=== PATIENT | male | born 1985 | race African-American/Black ===

== ENCOUNTER 2016-03-20 02:54 | Emergency (ER) | payer BC, OTHER ==
[~2016-03-20] VITALS: Ht 180.3 cm; Wt 72.6 kg
[2016-03-20] MEDS ORDERED: APAP500 PO (03:09)
[2016-03-20 03:32] LABS: HEMATOCRIT 47.2 % (42.0-52.0); HEMOGLOBIN 15.5 gm/dL (14.0-18.0); MCH 31.5 pg (26.0-34.0); MCHC 32.7 % (28.0-37.0); MCV 96.4 fL (80.0-100.0); PLATELET COUNT 169 thou/uL (150-400); RDW 12.1 % (10.5-14.5); WBC 3.8 thou/uL (4.0-11.0)
[2016-03-20 03:33] LABS: CALCIUM 8.1 mg/dL (8.5-10.1); CREATININE 1.1 mg/dL (0.6-1.3); MANUAL DIFF YES; POTASSIUM 3.8 mmol/L (3.5-5.1)
[2016-03-20 03:37] LABS: ALBUMIN 3.5 g/dL (3.4-5.0); DIRECT BILIRUBIN 0.2 mg/dL (<0.1-0.3); TOTAL BILIRUBIN 0.4 mg/dL (<0.1-1.0); TOTAL PROTEIN 6.4 g/dL (6.4-8.2)
[2016-03-20 04:00] LABS: URINE BILIRUBIN NEGATIVE (Negative); URINE BLOOD NEGATIVE (Negative); URINE COLOR YELLOW; URINE GLUCOSE-RANDOM* NEGATIVE (Negative); URINE KETONES NEGATIVE (Negative); URINE LEUKOCYTES-REFLEX NEGATIVE (Negative); URINE PROTEIN (DIPSTICK) NEGATIVE (Negative); URINE SPECIFIC GRAVITY <= 1.005 (1.003-1.035); URINE UROBILINOGEN 0.2 E.U./dl (0.2-1.0)
[2016-03-20 04:03] LABS: ABSOLUTE NEUTROPHILS 1.7 thou/uL (1.4-8.2); ATYPICAL LYMPHS 4 %; TOTAL CELL COUNT 100
[2016-03-20 04:32] VITALS: BP 114/73
[2016-03-20] MEDS ORDERED: ZOFRAN ODT4 MG PO (04:32)
[2016-03-20] MEDS ORDERED: NORCO 5-325 TA1 EACH PO (04:32)
[2016-04-18] MEDS ORDERED: PANTOPRAZOLE SO40 M1 PO (03:59)
[2016-04-18] MEDS ORDERED: NAPROSYN500 MG PO (06:00)
[2016-04-18] MEDS ORDERED: TESSALON PERLE100 MG PO (06:00)
== END 2016-03-20 04:46 | disposition home or self-care (01) ==
LOC: ER 02:54
PROVIDERS: Emergency Medicine
DX: K82.8 Other specified diseases of gallbladder (principal); Z88.1 Allergy status to other antibiotic agents; Z88.2 Allergy status to sulfonamides

== ENCOUNTER 2016-06-10 15:18 | Emergency (ER) | payer BC, OTHER ==
[~2016-06-10] VITALS: Ht 182.9 cm; Wt 74.8 kg
[~2016-06-10 15:18] MED LIST: APAP500 PO; NAPROSYN500 MG PO; NORCO 5-325 TA1 EACH PO; PANTOPRAZOLE SO40 M1 PO; TESSALON PERLE100 MG PO; ZOFRAN ODT4 MG PO
[2016-06-10 16:21] LABS: URINE BILIRUBIN NEGATIVE (Negative); URINE BLOOD NEGATIVE (Negative); URINE COLOR YELLOW; URINE GLUCOSE-RANDOM* NEGATIVE (Negative); URINE KETONES TRACE (Negative); URINE LEUKOCYTES-REFLEX NEGATIVE (Negative); URINE PROTEIN (DIPSTICK) NEGATIVE (Negative); URINE UROBILINOGEN 0.2 E.U./dl (0.2-1.0)
[2016-06-10] MEDS ORDERED: NAPROSYN500 MG PO (17:21)
[2016-06-10] MEDS ORDERED: TRAMADOL 50 MG50 MG PO (17:21)
[2016-06-10 17:40] VITALS: BP 120/76
== END 2016-06-10 17:41 | disposition home or self-care (01) ==
LOC: ER 15:18
PROVIDERS: Emergency Medicine
DX: I86.1 Scrotal varices (principal); K21.9 Gastro-esophageal reflux disease without esophagitis; Z88.1 Allergy status to other antibiotic agents; Z88.2 Allergy status to sulfonamides

== ENCOUNTER 2016-06-27 13:53 | Emergency (ER) | payer BC, OTHER ==
[~2016-06-27] VITALS: Ht 182.9 cm; Wt 72.6 kg
[~2016-06-27 13:53] MED LIST changes: +TRAMADOL 50 MG50 MG PO
[2016-06-27 14:36] LABS: ABSOLUTE NEUTROPHILS 4.5 thou/uL (1.4-8.2); BASOPHILS 0.3 % (0.0-2.0); EOSINOPHILS 0.3 % (0.0-3.0); HEMATOCRIT 46.1 % (42.0-52.0); HEMOGLOBIN 15.8 gm/dL (14.0-18.0); LYMPHOCYTES 28.1 % (24.0-44.0); MCH 32.3 pg (26.0-34.0); MCHC 34.3 g/dL (28.0-37.0); MCV 94.1 fL (80.0-100.0); MONOCYTES 4.5 % (1.0-8.0); PLATELET COUNT 218 thou/uL (150-400); POLYS 66.8 % (36.0-66.0); RDW 12.6 % (10.5-14.5); WBC 6.7 thou/uL (4.0-11.0)
[2016-06-27 14:40] LABS: CALCIUM 8.7 mg/dL (8.5-10.1); CREATININE 1.2 mg/dL (0.7-1.3); POTASSIUM 3.8 mmol/L (3.5-5.1)
[2016-06-27 14:44] LABS: MANUAL DIFF NO
[2016-06-27 16:30] VITALS: BP 127/79
== END 2016-06-27 16:30 | disposition home or self-care (01) ==
LOC: ER 13:53
PROVIDERS: Emergency Medicine
DX: R42 Dizziness and giddiness (principal); H53.8 Other visual disturbances; R43.1 Parosmia; K21.9 Gastro-esophageal reflux disease without esophagitis; Z98.890 Other specified postprocedural states; Z88.1 Allergy status to other antibiotic agents; Z88.2 Allergy status to sulfonamides

== ENCOUNTER 2016-08-10 17:50 | Emergency (ER) | payer BC, OTHER ==
[~2016-08-10] VITALS: Ht 185.4 cm; Wt 83.9 kg
[2016-08-10 18:11] LABS: URINE BILIRUBIN NEGATIVE (Negative); URINE BLOOD NEGATIVE (Negative); URINE COLOR YELLOW; URINE GLUCOSE-RANDOM* NEGATIVE (Negative); URINE KETONES TRACE (Negative); URINE NITRITE NEGATIVE (Negative); URINE PROTEIN (DIPSTICK) NEGATIVE (Negative); URINE SPECIFIC GRAVITY >= 1.030 (1.003-1.035); URINE UROBILINOGEN 0.2 E.U./dl (0.2-1.0)
[2016-08-10 20:16] LABS: CALCIUM 8.9 mg/dL (8.5-10.1); CREATININE 0.9 mg/dL (0.7-1.3); POTASSIUM 3.3 mmol/L (3.5-5.1)
[2016-08-10] MEDS ORDERED: FLAGYL500 MG PO (21:10)
[2016-08-10 21:17] VITALS: BP 138/62
== END 2016-08-10 21:18 | disposition home or self-care (01) ==
LOC: ER 17:50
PROVIDERS: Nurse Practitioner
DX: N41.9 Inflammatory disease of prostate, unspecified (principal); K21.9 Gastro-esophageal reflux disease without esophagitis; Z88.1 Allergy status to other antibiotic agents; Z88.2 Allergy status to sulfonamides

== ENCOUNTER 2016-08-14 20:03 | Emergency (ER) | payer BC, OTHER ==
[~2016-08-14] VITALS: Ht 182.8 cm; Wt 72.6 kg
[~2016-08-14 20:03] MED LIST changes: +FLAGYL500 MG PO
[2016-08-14 20:32] LABS: URINE BILIRUBIN NEGATIVE (Negative); URINE BLOOD NEGATIVE (Negative); URINE COLOR YELLOW; URINE GLUCOSE-RANDOM* NEGATIVE (Negative); URINE KETONES NEGATIVE (Negative); URINE NITRITE NEGATIVE (Negative); URINE PROTEIN (DIPSTICK) NEGATIVE (Negative); URINE UROBILINOGEN 0.2 E.U./dl (0.2-1.0)
[2016-08-14] MEDS ORDERED: NORCO 5-325 TA1 EACH PO (21:19)
[2016-08-14] MEDS ORDERED: PYRIDIUM200 MG PO (21:19)
[2016-08-14 21:24] VITALS: BP 128/73
== END 2016-08-14 21:20 | disposition home or self-care (01) ==
LOC: ER 20:03
PROVIDERS: Emergency Medicine
DX: R30.0 Dysuria (principal); K21.9 Gastro-esophageal reflux disease without esophagitis; Z88.1 Allergy status to other antibiotic agents; Z88.2 Allergy status to sulfonamides

== ENCOUNTER 2017-04-12 19:21 | Emergency (ER) | payer OTHER ==
[~2017-04-12] VITALS: Ht 182.9 cm; Wt 72.6 kg
[~2017-04-12 19:21] MED LIST changes: +PYRIDIUM200 MG PO
[2017-04-12 21:20] LABS: ABSOLUTE NEUTROPHILS 2.1 thou/uL (1.4-8.2); BASOPHILS 0.6 % (0.0-2.0); EOSINOPHILS 2.4 % (0.0-3.0); HEMATOCRIT 45.9 % (42.0-52.0); HEMOGLOBIN 15.4 gm/dL (14.0-18.0); MCH 31.9 pg (26.0-34.0); MCHC 33.5 g/dL (28.0-37.0); MCV 95.3 fL (80.0-100.0); MONOCYTES 6.4 % (1.0-8.0); PLATELET COUNT 220 thou/uL (150-400); POLYS 38.6 % (36.0-66.0); RBC 4.81 mil/uL (4.50-6.00); RDW 12.3 % (10.5-14.5); WBC 5.5 thou/uL (4.0-11.0)
[2017-04-12 21:32] LABS: POTASSIUM 4.1 mmol/L (3.5-5.1)
[2017-04-12] MEDS ORDERED: PRILOSEC 20 MG20 MG PO (22:49)
[2017-07-12] MEDS ORDERED: XANAX 0.25 MG0.25 MG PO (20:41)
[2017-08-14] MEDS ORDERED: ZOFRAN ODT4 MG PO (16:44)
== END 2017-04-13 | disposition home or self-care (01) ==
LOC: ER 19:21
PROVIDERS: Emergency Medicine
DX: R13.10 Dysphagia, unspecified (principal); K21.9 Gastro-esophageal reflux disease without esophagitis; Z88.1 Allergy status to other antibiotic agents; Z88.2 Allergy status to sulfonamides

== ENCOUNTER 2017-08-18 00:43 | Emergency (ER) | payer OTHER ==
[~2017-08-18] VITALS: Ht 182.9 cm; Wt 70.3 kg
[~2017-08-18 00:43] MED LIST changes: +PRILOSEC 20 MG20 MG PO; +XANAX 0.25 MG0.25 MG PO
[2017-08-18 01:32] LABS: ABSOLUTE NEUTROPHILS 2.7 thou/uL (1.4-8.2); BASOPHILS 0.5 % (0.0-2.0); EOSINOPHILS 1.4 % (0.0-3.0); HEMATOCRIT 44.3 % (42.0-52.0); HEMOGLOBIN 15.1 gm/dL (14.0-18.0); MCH 32.3 pg (26.0-34.0); MONOCYTES 7.7 % (1.0-8.0); PLATELET COUNT 220 thou/uL (150-400); POLYS 50.4 % (36.0-66.0); RBC 4.66 mil/uL (4.50-6.00); RDW 12.1 % (10.5-14.5); WBC 5.3 thou/uL (4.0-11.0)
[2017-08-18 01:40] LABS: CALCIUM 9.2 mg/dL (8.5-10.1); POTASSIUM 3.4 mmol/L (3.5-5.1)
[2017-08-18 01:46] LABS: ALBUMIN 4.4 g/dL (3.4-5.0); DIRECT BILIRUBIN 0.1 mg/dL (<0.1-0.3); TOTAL BILIRUBIN 0.7 mg/dL (<0.1-1.0); TOTAL PROTEIN 7.4 g/dL (6.4-8.2)
[2017-08-18] MEDS ORDERED: IMODIUM A-D2 MG PO (04:19)
[2017-08-18] MEDS ORDERED: BENTYL 20 MG TA20 M1 PO (04:19)
[2017-08-18 05:04] VITALS: BP 112/64
== END 2017-08-18 05:11 | disposition home or self-care (01) ==
LOC: ER 00:43
PROVIDERS: Emergency Medicine
DX: K52.9 Noninfective gastroenteritis and colitis, unspecified (principal); K21.9 Gastro-esophageal reflux disease without esophagitis; Z88.1 Allergy status to other antibiotic agents; Z88.2 Allergy status to sulfonamides

== ENCOUNTER 2017-10-26 05:06 | Emergency (ER) | payer OTHER ==
[~2017-10-26] VITALS: Ht 182.9 cm; Wt 70.3 kg
[~2017-10-26 05:06] MED LIST changes: +BENTYL 20 MG TA20 M1 PO; +IMODIUM A-D2 MG PO
[2017-10-26 05:56] LABS: ABSOLUTE NEUTROPHILS 3.2 thou/uL (1.4-8.2); BASOPHILS 0.5 % (0.0-2.0); EOSINOPHILS 0.4 % (0.0-3.0); HEMOGLOBIN 15.3 gm/dL (14.0-18.0); LYMPHOCYTES 30.3 % (24.0-44.0); MCH 32.3 pg (26.0-34.0); MCV 94.8 fL (80.0-100.0); MONOCYTES 4.6 % (1.0-8.0); PLATELET COUNT 196 thou/uL (150-400); POLYS 64.2 % (36.0-66.0); RBC 4.75 mil/uL (4.50-6.00); RDW 12.8 % (10.5-14.5)
[2017-10-26 06:00] LABS: CALCIUM 9.1 mg/dL (8.5-10.1); POTASSIUM 3.7 mmol/L (3.5-5.1)
[2017-10-26 07:49] VITALS: BP 99/62
== END 2017-10-26 07:49 | disposition home or self-care (01) ==
LOC: ER 05:06
PROVIDERS: Emergency Medicine
DX: M79.1 Myalgia (principal); R42 Dizziness and giddiness; R11.0 Nausea; R35.0 Frequency of micturition; Z88.1 Allergy status to other antibiotic agents; Z88.2 Allergy status to sulfonamides; K21.9 Gastro-esophageal reflux disease without esophagitis

== ENCOUNTER 2017-12-19 16:49 | Emergency (ER) | payer OTHER ==
[~2017-12-19] VITALS: Ht 182.9 cm; Wt 72.6 kg
[2017-12-19] MEDS ORDERED: VITAMIN D2000 UNIT PO (17:29)
[2017-12-19 19:13] LABS: BASOPHILS 0.6 % (0.0-2.0); EOSINOPHILS 1.1 % (0.0-3.0); HEMATOCRIT 46.8 % (42.0-52.0); HEMOGLOBIN 16.2 gm/dL (14.0-18.0); LYMPHOCYTES 48.7 % (24.0-44.0); MCH 32.9 pg (26.0-34.0); MCHC 34.7 g/dL (28.0-37.0); MCV 94.9 fL (80.0-100.0); MONOCYTES 7.2 % (1.0-8.0); PLATELET COUNT 192 thou/uL (150-400); POLYS 42.4 % (36.0-66.0); RBC 4.93 mil/uL (4.50-6.00); RDW 12.5 % (10.5-14.5); WBC 4.8 thou/uL (4.0-11.0)
[2017-12-19 19:26] LABS: INR 1.1; PROTIME 10.8 Seconds (9.3-11.4)
[2017-12-19 19:27] LABS: CALCIUM 9.1 mg/dL (8.5-10.1); POTASSIUM 4.2 mmol/L (3.5-5.1)
[2017-12-19 19:29] LABS: ALBUMIN 4.2 g/dL (3.4-5.0); TOTAL BILIRUBIN 0.6 mg/dL (<0.1-1.0); TOTAL PROTEIN 7.6 g/dL (6.4-8.2)
[2017-12-19] MEDS ORDERED: SYNTHROID25 MC1 PO (21:11)
[2017-12-19 21:17] VITALS: BP 140/90
== END 2017-12-19 21:25 | disposition home or self-care (01) ==
LOC: ER 16:49
PROVIDERS: Physician Assistant
DX: E03.9 Hypothyroidism, unspecified (principal); M54.2 Cervicalgia; R22.1 Localized swelling, mass and lump, neck; K21.9 Gastro-esophageal reflux disease without esophagitis; Z88.1 Allergy status to other antibiotic agents; Z88.2 Allergy status to sulfonamides

== ENCOUNTER → 2018-02-14 | Outpatient (CLI) | payer OTHER ==
[~2018-02-14] MED LIST changes: +AMOX TR-K CLV1 EAC3 PO; +CLONAZEPAM 0.50.5 M1 PO; +NITROGLYCERIN0.4 MG SUBLING; +PROTONIX40 M1 PO; +SYNTHROID25 MC1 PO; +SYNTHROID50 MCG PO; +VITAMIN D2000 UNIT PO
== END ==
LOC: RAD 15:45
DX: R05 Cough (principal); R06.02 Shortness of breath; R07.9 Chest pain, unspecified

== ENCOUNTER 2018-02-15 04:34 | Emergency (ER) | payer OTHER ==
[~2018-02-15] VITALS: Ht 182.9 cm; Wt 74.8 kg
--- NOTE | ~2018-02-15 | EKG ---
[address] [address] ELECTROCARDIOGRAM REPORT Name: PELON GRANT [id number] Admission: 02/15/18 Attend Phys: Discharge: 02/15/18 Date of : [birth year] Report #: [id number] THIS REPORT FOR: //name// [facility] ED Test Date: 2018-02-15 Test Time: 04:46:40 Pat Name: PELON GRANT Department: Room: Gender: Manager Risk: chiki : 1985 Requested By: Rayne Redmond Order Number: [id number] MD: Bulmaro Samuel Measurements Intervals [place] Rate: 77 P: 53 CO: 141 QRS: 23 QRSD: 109 T: 30 QT: 367 QTc: 416 Interpretive Statements Sinus rhythm Normal tracing Compared to ECG 07/12/2017 20:35:13 No significant change was found Electronically Signed On 02-15-2018 9:08:53 SHIFT BOSS by Bulmaro Samuel [email or web address] <ELECTRONICALLY SIGNED> By: Bulmaro Samuel MD, [facility] 02/15/18 0908 0446 0446 Bulmaro Samuel MD, FACC /EPI
[~2018-02-15 04:34] MED LIST changes: -AMOX TR-K CLV1 EAC3 PO; -CLONAZEPAM 0.50.5 M1 PO; -NITROGLYCERIN0.4 MG SUBLING; -PROTONIX40 M1 PO; -SYNTHROID50 MCG PO
[2018-02-15] MEDS ORDERED: PROTONIX40 M1 PO (04:48)
[2018-02-15] MEDS ORDERED: SYNTHROID50 MCG PO (04:48)
[2018-02-15] MEDS ORDERED: CLONAZEPAM 0.50.5 M1 PO (04:50)
[2018-02-15] MEDS ORDERED: AMOX TR-K CLV1 EAC3 PO (04:51)
[2018-02-15 04:59] LABS: ABSOLUTE NEUTROPHILS 1.6 thou/uL (1.4-8.2); BASOPHILS 0.7 % (0.0-2.0); EOSINOPHILS 1.1 % (0.0-3.0); HEMATOCRIT 46.6 % (42.0-52.0); HEMOGLOBIN 15.7 gm/dL (14.0-18.0); LYMPHOCYTES 57.7 % (24.0-44.0); MCH 32.1 pg (26.0-34.0); MCHC 33.7 g/dL (28.0-37.0); MCV 95.1 fL (80.0-100.0); MONOCYTES 6.5 % (1.0-8.0); PLATELET COUNT 203 thou/uL (150-400); RDW 12.3 % (10.5-14.5); WBC 4.7 thou/uL (4.0-11.0)
[2018-02-15 05:04] LABS: ANION GAP 8 mmol/L (7-16); BUN 8 mg/dL (7-18); CALCIUM 9.7 mg/dL (8.5-10.1); CHLORIDE 103 mmol/L (98-107); CO2 27 mmol/L (21-32); GLUCOSE 108 mg/dL (74-106); POTASSIUM 3.3 mmol/L (3.5-5.1); SODIUM 138 mmol/L (136-145)
[2018-02-15 05:13] LABS: ALBUMIN 4.4 g/dL (3.4-5.0); SGOT 24 U/L (15-37); SGPT 25 U/L (30-65); TOTAL BILIRUBIN 1.3 mg/dL (<0.1-1.0); TOTAL PROTEIN 7.4 g/dL (6.4-8.2); TROPONIN-I <0.06 ng/mL (<0.06)
[2018-02-15] MEDS ORDERED: NITROGLYCERIN0.4 MG SUBLING (07:54)
[2018-02-15 08:18] VITALS: BP 123/56
== END 2018-02-15 08:19 | disposition home or self-care (01) ==
LOC: ER 04:34
PROVIDERS: Student in an Organized Health Care Education/Training Program
DX: K22.4 Dyskinesia of esophagus (principal); K21.9 Gastro-esophageal reflux disease without esophagitis; R07.9 Chest pain, unspecified; Z88.1 Allergy status to other antibiotic agents; Z88.2 Allergy status to sulfonamides

== ENCOUNTER 2018-03-11 16:25 | Emergency (ER) | payer OTHER ==
[~2018-03-11] VITALS: Ht 182.9 cm; Wt 74.8 kg
[~2018-03-11 16:25] MED LIST changes: +AMOX TR-K CLV1 EAC3 PO; +CLONAZEPAM 0.50.5 M1 PO; +NITROGLYCERIN0.4 MG SUBLING; +PROTONIX40 M1 PO; +SYNTHROID50 MCG PO
[2018-03-11 17:28] LABS: ABSOLUTE NEUTROPHILS 5.6 thou/uL (1.4-8.2); BASOPHILS 0.2 % (0.0-2.0); EOSINOPHILS 0.4 % (0.0-3.0); HEMATOCRIT 46.3 % (42.0-52.0); HEMOGLOBIN 15.7 gm/dL (14.0-18.0); LYMPHOCYTES 18.7 % (24.0-44.0); MCH 32.6 pg (26.0-34.0); MCHC 33.8 g/dL (28.0-37.0); MCV 96.3 fL (80.0-100.0); PLATELET COUNT 187 thou/uL (150-400); POLYS 76.7 % (36.0-66.0); RBC 4.81 mil/uL (4.50-6.00); RDW 12.7 % (10.5-14.5); WBC 7.3 thou/uL (4.0-11.0)
[2018-03-11 17:36] LABS: CALCIUM 9.3 mg/dL (8.5-10.1); POTASSIUM 3.8 mmol/L (3.5-5.1)
[2018-03-11 18:42] VITALS: BP 113/66
== END 2018-03-11 18:43 | disposition home or self-care (01) ==
LOC: ER 16:25
PROVIDERS: Physician Assistant
DX: Z71.1 Person with feared health complaint in whom no diagnosis is made (principal); E03.9 Hypothyroidism, unspecified; Z87.19 Personal history of other diseases of the digestive system; K21.9 Gastro-esophageal reflux disease without esophagitis; Z88.1 Allergy status to other antibiotic agents; Z88.2 Allergy status to sulfonamides

== ENCOUNTER 2018-03-30 14:25 | Emergency (ER) | payer OTHER ==
[~2018-03-30] VITALS: Ht 182.9 cm; Wt 72.6 kg
[2018-03-30 14:26] VITALS: BP 133/84
[2018-03-30] MEDS ORDERED: FLONASE 0.05%50 MCG NASAL (15:04)
== END 2018-03-30 15:18 | disposition home or self-care (01) ==
LOC: ER 14:25
DX: R51 Headache (principal); K21.9 Gastro-esophageal reflux disease without esophagitis; E03.9 Hypothyroidism, unspecified; E05.90 Thyrotoxicosis, unspecified without thyrotoxic crisis or storm; Z88.1 Allergy status to other antibiotic agents; Z88.2 Allergy status to sulfonamides

== ENCOUNTER 2018-04-29 21:35 | Emergency (ER) | payer OTHER ==
[~2018-04-29] VITALS: Ht 182.9 cm; Wt 72.6 kg
[~2018-04-29 21:35] MED LIST changes: +FLONASE 0.05%50 MCG NASAL
[2018-04-29] MEDS ORDERED: KLOR-CON 1010 MEQ PO (21:56)
[2018-04-29 22:15] LABS: ABSOLUTE NEUTROPHILS 2.7 thou/uL (1.4-8.2); BASOPHILS 0.6 % (0.0-2.0); EOSINOPHILS 0.8 % (0.0-3.0); HEMATOCRIT 43.4 % (42.0-52.0); HEMOGLOBIN 14.8 gm/dL (14.0-18.0); LYMPHOCYTES 43.2 % (24.0-44.0); MCH 32.5 pg (26.0-34.0); MCHC 34.1 g/dL (28.0-37.0); MCV 95.2 fL (80.0-100.0); PLATELET COUNT 199 thou/uL (150-400); POLYS 49.4 % (36.0-66.0); RBC 4.56 mil/uL (4.50-6.00); RDW 12.6 % (10.5-14.5); WBC 5.4 thou/uL (4.0-11.0)
[2018-04-29 22:23] LABS: CALCIUM 9.3 mg/dL (8.5-10.1); CREATININE 0.9 mg/dL (0.7-1.3); POTASSIUM 3.5 mmol/L (3.5-5.1)
[2018-04-29 22:29] LABS: TOTAL BILIRUBIN 0.5 mg/dL (<0.1-1.0); TOTAL PROTEIN 6.7 g/dL (6.4-8.2)
[2018-04-29 23:26] VITALS: BP 124/74
--- NOTE | 2018-04-30 22:08 | EKG ---
[address] [place] [address] ELECTROCARDIOGRAM REPORT Name: PELON GRANT Room #: DEP Darius#: [id number] Admission: 04/29/18 Attend Phys: Discharge: 04/29/18 Date of : [birth year] Report #: [id number] THIS REPORT FOR: //name// 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
== END 2018-04-29 23:28 | disposition home or self-care (01) ==
LOC: ER 21:35
PROVIDERS: Emergency Medicine
DX: R20.2 Paresthesia of skin (principal); K21.9 Gastro-esophageal reflux disease without esophagitis; E03.9 Hypothyroidism, unspecified; Z88.1 Allergy status to other antibiotic agents; Z88.2 Allergy status to sulfonamides

== ENCOUNTER 2018-06-06 21:13 | Emergency (ER) | payer OTHER ==
[~2018-06-06] VITALS: Ht 172.7 cm; Wt 74.8 kg
[~2018-06-06 21:13] MED LIST changes: +KLOR-CON 1010 MEQ PO
[2018-06-06] MEDS ORDERED: SYNTHROID50 MCG PO (21:41)
[2018-06-06] MEDS ORDERED: PROPRANOLOL 1010 MG PO (21:42)
[2018-06-06] MEDS ORDERED: LISINOPRIL10 MG PO (21:42)
[2018-06-06] MEDS ORDERED: NAPROSYN500 MG PO (22:02)
[2018-06-06] MEDS ORDERED: NORFLEX100 MG PO (22:02)
[2018-06-06 22:43] VITALS: BP 112/70
== END 2018-06-06 22:45 | disposition home or self-care (01) ==
LOC: ER 21:13
DX: R51 Headache (principal); K21.9 Gastro-esophageal reflux disease without esophagitis; E03.9 Hypothyroidism, unspecified; I10 Essential (primary) hypertension; Z79.899 Other long term (current) drug therapy; Z88.1 Allergy status to other antibiotic agents; Z88.5 Allergy status to narcotic agent

== ENCOUNTER 2018-08-07 20:19 | Emergency (ER) | payer OTHER ==
[~2018-08-07] VITALS: Ht 182.9 cm; Wt 74.8 kg
[~2018-08-07 20:19] MED LIST changes: +LISINOPRIL10 MG PO; +NORFLEX100 MG PO; +PROPRANOLOL 1010 MG PO
[2018-08-07] MEDS ORDERED: LEVAQUIN 500 M500 M3 PO (20:36)
[2018-08-07 20:56] LABS: URINE BILIRUBIN NEGATIVE (Negative); URINE BLOOD NEGATIVE (Negative); URINE CLARITY CLEAR; URINE COLOR YELLOW; URINE GLUCOSE-RANDOM* NEGATIVE (Negative); URINE KETONES NEGATIVE (Negative); URINE LEUKOCYTES-REFLEX NEGATIVE (Negative); URINE NITRITE-REFLEX NEGATIVE (Negative); URINE PROTEIN (DIPSTICK) NEGATIVE (Negative); URINE SPECIFIC GRAVITY 1.025 (1.005-1.035); URINE UROBILINOGEN 0.2 E.U./dl (0.2-1.0)
[2018-08-07 20:57] LABS: ABSOLUTE NEUTROPHILS 2.3 thou/uL (1.4-8.2); BASOPHILS 0.6 % (0.0-2.0); EOSINOPHILS 0.9 % (0.0-3.0); HEMATOCRIT 41.7 % (42.0-52.0); LYMPHOCYTES 46.4 % (24.0-44.0); MCH 32.6 pg (26.0-34.0); MCHC 33.6 g/dL (28.0-37.0); MONOCYTES 5.7 % (1.0-8.0); PLATELET COUNT 213 thou/uL (150-400); POLYS 46.4 % (36.0-66.0); RDW 12.7 % (10.5-14.5); WBC 4.9 thou/uL (4.0-11.0)
[2018-08-07 21:01] LABS: CALCIUM 8.9 mg/dL (8.5-10.1); CREATININE 1.1 mg/dL (0.7-1.3); POTASSIUM 4.3 mmol/L (3.5-5.1)
[2018-08-07 23:10] VITALS: BP 108/65
--- NOTE | 2018-08-08 07:40 | EKG ---
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: KIKO : 1985 Requested By: Bette Toure Order Number: [id number] MD: Bulmaro Samuel Measurements Intervals [place] Rate: 65 P: 58 ME: 146 QRS: 28 QRSD: 88 T: 28 QT: 364 QTc: 379 Interpretive Statements Sinus rhythm Normal tracing Compared to ECG 04/29/2018 22:16:25 T-wave abnormality no longer present Electronically Signed On 08-08-2018 7:39:58 CDT by Bulmaro Samuel [email or web address] ��������������������������������������������� <ELECTRONICALLY SIGNED> ���������������������������������������� By: Bulmaro Samuel MD, [facility] ��������������������������������������������� 08/08/18 0739 2035 34 Bulmaro Samuel MD, FACC /EPI
== END 2018-08-07 23:11 | disposition home or self-care (01) ==
LOC: ER 20:19
PROVIDERS: Emergency Medicine
DX: R42 Dizziness and giddiness (principal); K21.9 Gastro-esophageal reflux disease without esophagitis; E03.9 Hypothyroidism, unspecified; I10 Essential (primary) hypertension; Z88.1 Allergy status to other antibiotic agents; Z88.2 Allergy status to sulfonamides; Z88.8 Allergy status to other drugs, medicaments and biological substances

== ENCOUNTER 2018-10-04 02:47 | Emergency (ER) | payer OTHER ==
[~2018-10-04] VITALS: Ht 182.9 cm; Wt 74.8 kg
[~2018-10-04 02:47] MED LIST changes: +LEVAQUIN 500 M500 M3 PO
[2018-10-04 04:22] VITALS: BP 106/74
== END 2018-10-04 04:28 | disposition home or self-care (01) ==
LOC: ER 02:47
DX: T16.1XXA Foreign body in right ear, initial encounter (principal); K21.9 Gastro-esophageal reflux disease without esophagitis; E03.9 Hypothyroidism, unspecified; I10 Essential (primary) hypertension; Z71.1 Person with feared health complaint in whom no diagnosis is made; Z88.1 Allergy status to other antibiotic agents; Z88.2 Allergy status to sulfonamides; Z88.6 Allergy status to analgesic agent; Z79.899 Other long term (current) drug therapy; X58.XXXA Exposure to other specified factors, initial encounter; Y93.89 Activity, other specified; Y92.89 Other specified places as the place of occurrence of the external cause; Y99.9 Unspecified external cause status

== ENCOUNTER 2018-11-19 16:29 | Emergency (ER) | payer OTHER ==
[~2018-11-19] VITALS: Ht 182.9 cm; Wt 74.8 kg
[2018-11-19] MEDS ORDERED: VITAMIN D5000 UNIT PO (16:34)
[2018-11-19] MEDS ORDERED: POTASSIUM20 PO (16:34)
[2018-11-19] MEDS ORDERED: IRON325 PO (16:34)
[2018-11-19] MEDS ORDERED: PROTONIX 20 MG20 M1 PO (16:34)
[2018-11-19 16:59] LABS: ABSOLUTE NEUTROPHILS 2.3 thou/uL (1.4-8.2); BASOPHILS 0.7 % (0.0-2.0); EOSINOPHILS 1.1 % (0.0-3.0); HEMATOCRIT 45.4 % (42.0-52.0); HEMOGLOBIN 15.1 gm/dL (14.0-18.0); LYMPHOCYTES 42.5 % (24.0-44.0); MCH 32.4 pg (26.0-34.0); MCHC 33.3 g/dL (28.0-37.0); MCV 97.2 fL (80.0-100.0); MONOCYTES 8.2 % (1.0-8.0); PLATELET COUNT 228 thou/uL (150-400); POLYS 47.5 % (36.0-66.0); RBC 4.67 mil/uL (4.50-6.00); RDW 12.5 % (10.5-14.5); WBC 4.9 thou/uL (4.0-11.0)
[2018-11-19 17:11] LABS: ANION GAP < 0 mmol/L (7-16); BUN 11 mg/dL (7-18); CALCIUM 8.8 mg/dL (8.5-10.1); CHLORIDE 101 mmol/L (98-107); CO2 29 mmol/L (21-32); CREATININE 1.2 mg/dL (0.7-1.3); GLUCOSE 62 mg/dL (74-106); POTASSIUM 3.6 mmol/L (3.5-5.1); SODIUM 127 mmol/L (136-145)
[2018-11-19 17:21] LABS: SGOT 16 U/L (15-37); SGPT 17 U/L (30-65); TOTAL BILIRUBIN 0.4 mg/dL (<0.1-1.0); TROPONIN-I <0.06 ng/mL (<0.06)
[2018-11-19 17:40] VITALS: BP 105/72
[2018-11-19] MEDS ORDERED: CARAFATE 1 GM TA1 G1 PO (17:50)
[2018-11-19] MEDS ORDERED: PEPCID40 MG PO (17:50)
--- NOTE | 2018-11-20 07:50 | EKG ---
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: [facility] : 1985 Requested By: Roman Gomez Order Number: [id number] MD: Bulmaro Samuel Measurements Intervals [place] Rate: 77 P: 58 [place]: 136 QRS: 18 QRSD: 107 T: 29 QT: 363 QTc: 411 Interpretive Statements Sinus rhythm RSR' in V1 or V2, right VCD Compared to ECG 08/07/2018 20:35:23 RSR' in V1 or V2 now present Electronically Signed On 11-20-2018 7:49:45 CDT by Bulmaro Samuel [email or web address] <ELECTRONICALLY SIGNED> By: Bulmaro Samuel MD, [facility] 11/20/18 0749 30 30 Bulmaro Samuel MD, [facility] /EPI
== END 2018-11-19 17:40 | disposition home or self-care (01) ==
LOC: ER 16:29
PROVIDERS: Physician Assistant
DX: K21.9 Gastro-esophageal reflux disease without esophagitis (principal); K29.70 Gastritis, unspecified, without bleeding; E03.9 Hypothyroidism, unspecified; I10 Essential (primary) hypertension; Z86.711 Personal history of pulmonary embolism; Z86.718 Personal history of other venous thrombosis and embolism; Z88.1 Allergy status to other antibiotic agents; Z88.2 Allergy status to sulfonamides; Z88.6 Allergy status to analgesic agent

== ENCOUNTER 2018-12-29 16:08 | Emergency (ER) | payer OTHER ==
[~2018-12-29] VITALS: Ht 182.9 cm; Wt 72.6 kg
[~2018-12-29 16:08] MED LIST changes: +CARAFATE 1 GM TA1 G1 PO; +IRON325 PO; +PEPCID40 MG PO; +POTASSIUM20 PO; +PROTONIX 20 MG20 M1 PO; +VITAMIN D5000 UNIT PO
[2018-12-29] MEDS ORDERED: LISINOPRIL2.5 MG PO (16:47)
[2018-12-29] MEDS ORDERED: OMEPRAZOLE 20 M20 M1 PO (16:47)
[2018-12-29 16:55] LABS: CALCIUM 8.7 mg/dL (8.5-10.1); POTASSIUM 3.8 mmol/L (3.5-5.1)
[2018-12-29] MEDS ORDERED: POTASSIUM20 PO (17:52)
[2018-12-29 18:19] VITALS: BP 107/48
== END 2018-12-29 18:21 | disposition home or self-care (01) ==
LOC: ER 16:08
PROVIDERS: Physician Assistant
DX: R20.2 Paresthesia of skin (principal); K21.9 Gastro-esophageal reflux disease without esophagitis; E03.9 Hypothyroidism, unspecified; I10 Essential (primary) hypertension; Z98.890 Other specified postprocedural states; Z88.1 Allergy status to other antibiotic agents; Z88.2 Allergy status to sulfonamides; Z88.6 Allergy status to analgesic agent

== ENCOUNTER 2019-01-14 22:39 | Emergency (ER) | payer OTHER ==
[~2019-01-14] VITALS: Ht 182.9 cm; Wt 72.6 kg
[~2019-01-14 22:39] MED LIST changes: +LISINOPRIL2.5 MG PO; +OMEPRAZOLE 20 M20 M1 PO
[2019-01-14 23:03] LABS: URINE BILIRUBIN NEGATIVE (Negative); URINE BLOOD NEGATIVE (Negative); URINE CLARITY CLEAR; URINE COLOR YELLOW; URINE GLUCOSE-RANDOM* NEGATIVE (Negative); URINE KETONES NEGATIVE (Negative); URINE LEUKOCYTES-REFLEX NEGATIVE (Negative); URINE NITRITE-REFLEX NEGATIVE (Negative); URINE PROTEIN (DIPSTICK) NEGATIVE (Negative); URINE UROBILINOGEN 0.2 E.U./dl (0.2-1.0)
[2019-01-14 23:24] LABS: ABSOLUTE NEUTROPHILS 1.3 thou/uL (1.4-8.2); BASOPHILS 0.9 % (0.0-2.0); EOSINOPHILS 1.1 % (0.0-3.0); HEMATOCRIT 45.3 % (42.0-52.0); HEMOGLOBIN 14.9 gm/dL (14.0-18.0); LYMPHOCYTES 59.1 % (24.0-44.0); MCH 32.2 pg (26.0-34.0); MCHC 32.9 g/dL (28.0-37.0); MCV 97.8 fL (80.0-100.0); MONOCYTES 7.3 % (1.0-8.0); PLATELET COUNT 203 thou/uL (150-400); POLYS 31.6 % (36.0-66.0); RBC 4.63 mil/uL (4.50-6.00); RDW 12.7 % (10.5-14.5); WBC 4.1 thou/uL (4.0-11.0)
[2019-01-14] MEDS ORDERED: INDERAL LA120 M1 PO (23:25)
[2019-01-14 23:43] LABS: ALBUMIN 3.7 g/dL (3.4-5.0); ANION GAP 8 mmol/L (7-16); BUN 16 mg/dL (7-18); CALCIUM 8.7 mg/dL (8.5-10.1); CHLORIDE 101 mmol/L (98-107); GLUCOSE 101 mg/dL (74-106); MAGNESIUM 1.9 mg/dL (1.8-2.4); POTASSIUM 3.8 mmol/L (3.5-5.1); SGOT 19 U/L (15-37); SGPT 18 U/L (30-65); SODIUM 137 mmol/L (136-145); TOTAL BILIRUBIN 0.4 mg/dL (<0.1-1.0); TOTAL PROTEIN 6.8 g/dL (6.4-8.2); TROPONIN-I <0.06 ng/mL (<0.06)
[2019-01-14 23:50] LABS: CO2 28 mmol/L (21-32); CREATININE 1.2 mg/dL (0.7-1.3)
[2019-01-14] MEDS ORDERED: ANTIVERT25 MG PO (23:57)
[2019-01-15 00:46] VITALS: BP 104/43
--- NOTE | 2019-01-15 07:48 | EKG ---
[address] [place] [address] ELECTROCARDIOGRAM REPORT Name: PELON GRANT [facility]: [facility] [id number] Admission: 01/14/19 Attend Phys: Discharge: 01/15/19 Date of : [birth year] Report #: [id number] THIS REPORT FOR: //name// 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 : 1985 Requested By: Freddie Calhoun Order Number: [id number] MD: Bulmaro Samuel Measurements Intervals [place] Rate: 59 P: 71 [place]: 155 QRS: 32 QRSD: 110 T: 23 QT: 413 QTc: 410 Interpretive Statements Sinus bradycardia Otherwise normal tracing Compared to ECG 11/19/2018 16:31:25 No significant changes Electronically Signed On 01-15-2019 7:47:47 LEAD ATHLETE by Bulmaro Samuel [email or web address] <ELECTRONICALLY SIGNED> By: Bulmaro Samuel MD, [facility] 01/15/19 0747 2307 2307 Bulmaro Samuel MD, FACC /EPI
== END 2019-01-15 00:47 | disposition home or self-care (01) ==
LOC: ER 22:39
PROVIDERS: Emergency Medicine
DX: R42 Dizziness and giddiness (principal); I10 Essential (primary) hypertension; E03.9 Hypothyroidism, unspecified; K21.9 Gastro-esophageal reflux disease without esophagitis; Z88.1 Allergy status to other antibiotic agents; Z88.2 Allergy status to sulfonamides; Z88.6 Allergy status to analgesic agent

== ENCOUNTER 2019-02-18 22:07 | Emergency (ER) | payer OTHER ==
[~2019-02-18] VITALS: Ht 223.5 cm; Wt 72.6 kg
[~2019-02-18 22:07] MED LIST changes: +ANTIVERT25 MG PO; +INDERAL LA120 M1 PO
[2019-02-18] MEDS ORDERED: SUPER THERAVIT1 EACH PO (22:16)
[2019-02-18] MEDS ORDERED: ONDANSETRON ODT8 MG PO (22:44)
[2019-02-18 22:57] LABS: ABSOLUTE NEUTROPHILS 2.1 thou/uL (1.4-8.2); BASOPHILS 0.4 % (0.0-2.0); EOSINOPHILS 1.2 % (0.0-3.0); HEMATOCRIT 44.7 % (42.0-52.0); HEMOGLOBIN 14.7 gm/dL (14.0-18.0); LYMPHOCYTES 50.2 % (24.0-44.0); MCH 32.1 pg (26.0-34.0); MCHC 32.8 g/dL (28.0-37.0); MCV 97.8 fL (80.0-100.0); MONOCYTES 5.5 % (1.0-8.0); PLATELET COUNT 200 thou/uL (150-400); POLYS 42.7 % (36.0-66.0); RBC 4.57 mil/uL (4.50-6.00); RDW 12.9 % (10.5-14.5); WBC 4.8 thou/uL (4.0-11.0)
[2019-02-18 23:02] LABS: ANION GAP 7 mmol/L (7-16); BUN 14 mg/dL (7-18); CALCIUM 8.8 mg/dL (8.5-10.1); CHLORIDE 105 mmol/L (98-107); CO2 27 mmol/L (21-32); CREATININE 0.9 mg/dL (0.7-1.3); GLUCOSE 115 mg/dL (74-106); POTASSIUM 3.9 mmol/L (3.5-5.1); SODIUM 139 mmol/L (136-145)
[2019-02-18 23:12] LABS: MAGNESIUM 1.9 mg/dL (1.8-2.4); SGOT 20 U/L (15-37); SGPT 27 U/L (30-65); TOTAL BILIRUBIN 0.4 mg/dL (<0.1-1.0); TOTAL PROTEIN 6.6 g/dL (6.4-8.2); TROPONIN-I <0.06 ng/mL (<0.06)
[2019-02-19 00:01] LABS: URINE BILIRUBIN NEGATIVE (Negative); URINE BLOOD NEGATIVE (Negative); URINE CLARITY CLEAR; URINE COLOR YELLOW; URINE GLUCOSE-RANDOM* NEGATIVE (Negative); URINE KETONES NEGATIVE (Negative); URINE LEUKOCYTES-REFLEX NEGATIVE (Negative); URINE NITRITE-REFLEX NEGATIVE (Negative); URINE PROTEIN (DIPSTICK) NEGATIVE (Negative)
[2019-02-19 00:10] LABS: AMP/METHAMP Negative (Negative); BARBITURATES Negative (Negative); BENZODIAZEPINES Negative (Negative); COCAINE Negative (Negative); METHADONE Negative (Negative); OPIATES Negative (Negative); PCP Negative (Negative)
[2019-02-19] MEDS ORDERED: ATIVAN0.5 M1 PO (00:19)
[2019-02-19 00:46] VITALS: BP 112/78
--- NOTE | 2019-02-19 08:52 | EKG ---
[address] [address] [place] [place] [address] ELECTROCARDIOGRAM REPORT Name: PELON GRANT [id number] Admission: 02/18/19 Attend Phys: Discharge: 02/19/19 Date of : [birth year] Report #: [id number] THIS REPORT FOR: //name// [facility] [place] ED Test Date: 2019-02-18 Test Time: 22:21:19 Pat Name: PELON GRANT Department: Room: Gender: Abstract Searcher: JULIA : 1985 Requested By: Freddie Calhoun Order Number: [id number] MD: Bulmaro Samuel Measurements Intervals [place] Rate: 63 P: 73 [place]: 145 QRS: 32 QRSD: 112 T: 26 QT: 387 QTc: 397 Interpretive Statements Sinus rhythm Normal tracing Compared to ECG 01/14/2019 23:07:24 Sinus bradycardia no longer present Electronically Signed On 02-19-2019 8:52:22 REPAIR COIL WINDER by Bulmaro Samuel [email or web address] <ELECTRONICALLY SIGNED> By: Bulmaro Samuel MD, [facility] 02/19/19 0852 2221 2221 Bulmaro Samuel MD, FAC /EPI
== END 2019-02-19 00:46 | disposition home or self-care (01) ==
LOC: ER 22:07
PROVIDERS: Emergency Medicine
DX: K59.00 Constipation, unspecified (principal); F41.9 Anxiety disorder, unspecified; R20.2 Paresthesia of skin; E03.9 Hypothyroidism, unspecified; R42 Dizziness and giddiness; I10 Essential (primary) hypertension; K21.9 Gastro-esophageal reflux disease without esophagitis; Z98.890 Other specified postprocedural states; Z88.1 Allergy status to other antibiotic agents; Z88.6 Allergy status to analgesic agent; Z88.2 Allergy status to sulfonamides

== ENCOUNTER 2019-03-14 12:32 | Emergency (ER) | payer OTHER ==
[~2019-03-14] VITALS: Ht 182.9 cm; Wt 72.6 kg
[~2019-03-14 12:32] MED LIST changes: +ATIVAN0.5 M1 PO; +ONDANSETRON ODT8 MG PO; +SUPER THERAVIT1 EACH PO
[2019-03-14 13:59] LABS: ANION GAP 6 mmol/L (7-16); BUN 12 mg/dL (7-18); CHLORIDE 103 mmol/L (98-107); CO2 27 mmol/L (21-32); CREATININE 0.9 mg/dL (0.7-1.3); GLUCOSE 85 mg/dL (74-106); SODIUM 136 mmol/L (136-145)
[2019-03-14 14:09] LABS: ALBUMIN 4.1 g/dL (3.4-5.0); SGOT 24 U/L (15-37); SGPT 30 U/L (30-65); TOTAL BILIRUBIN 0.7 mg/dL (<0.1-1.0); TOTAL PROTEIN 7.1 g/dL (6.4-8.2); TROPONIN-I <0.06 ng/mL (<0.06)
[2019-03-14 14:22] LABS: ABSOLUTE NEUTROPHILS 1.7 thou/uL (1.4-8.2); BASOPHILS 0.6 % (0.0-2.0); EOSINOPHILS 0.9 % (0.0-3.0); HEMOGLOBIN 14.3 gm/dL (14.0-18.0); MCH 31.6 pg (26.0-34.0); MCHC 32.5 g/dL (28.0-37.0); MCV 97.2 fL (80.0-100.0); MONOCYTES 6.4 % (1.0-8.0); PLATELET COUNT 194 thou/uL (150-400); POLYS 46.1 % (36.0-66.0); RBC 4.53 mil/uL (4.50-6.00); RDW 12.7 % (10.5-14.5); WBC 3.7 thou/uL (4.0-11.0)
[2019-03-14 16:14] VITALS: BP 122/76
--- NOTE | 2019-03-15 08:25 | EKG ---
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 And Service Specialist: : 1985 Requested By: Roman Gomez Order Number: [id number] MD: Bulmaro Samuel Measurements Intervals [place] Rate: 69 P: 80 [place]: 137 QRS: 59 QRSD: 97 T: 44 QT: 374 QTc: 401 Interpretive Statements Sinus rhythm RSR' in V1 or V2, probably normal variant Baseline wander in lead(s) V4 Compared to ECG 02/18/2019 22:21:19 RSR' in V1 or V2 now present Electronically Signed On 03-15-2019 8:24:31 CORRECTIONS NURSE by Bulmaro Samuel [email or web address] <ELECTRONICALLY SIGNED> By: Bulmaro Samuel MD, [facility] 03/15/1924 1250 1250 Bulmaro Samuel MD, [facility] /EPI
== END 2019-03-14 16:16 | disposition home or self-care (01) ==
LOC: ER 12:32
PROVIDERS: Physician Assistant
DX: R06.02 Shortness of breath (principal); I10 Essential (primary) hypertension; E03.9 Hypothyroidism, unspecified; K21.9 Gastro-esophageal reflux disease without esophagitis; Z88.1 Allergy status to other antibiotic agents; Z88.2 Allergy status to sulfonamides; Z88.6 Allergy status to analgesic agent

== ENCOUNTER 2019-05-12 16:56 | Emergency (ER) | payer OTHER ==
[~2019-05-12] VITALS: Ht 182.9 cm; Wt 72.6 kg
[2019-05-12 17:26] LABS: ABSOLUTE NEUTROPHILS 1.5 thou/uL (1.4-8.2); BASOPHILS 0.6 % (0.0-2.0); EOSINOPHILS 1.5 % (0.0-3.0); HEMATOCRIT 46.1 % (42.0-52.0); HEMOGLOBIN 15.4 gm/dL (14.0-18.0); LYMPHOCYTES 53.6 % (24.0-44.0); MCH 32.3 pg (26.0-34.0); MCHC 33.4 g/dL (28.0-37.0); MCV 96.7 fL (80.0-100.0); MONOCYTES 7.7 % (1.0-8.0); PLATELET COUNT 237 thou/uL (150-400); POLYS 36.6 % (36.0-66.0); RBC 4.77 mil/uL (4.50-6.00); RDW 12.2 % (10.5-14.5); WBC 4.1 thou/uL (4.0-11.0)
[2019-05-12 17:33] LABS: CALCIUM 9.2 mg/dL (8.5-10.1); CREATININE 0.9 mg/dL (0.7-1.3); POTASSIUM 4.1 mmol/L (3.5-5.1)
[2019-05-12 17:41] LABS: TOTAL BILIRUBIN 0.5 mg/dL (<0.1-1.0)
[2019-05-12] MEDS ORDERED: PEPCID20 MG PO (17:42)
[2019-05-12 17:58] LABS: URINE BILIRUBIN NEGATIVE (Negative); URINE BLOOD NEGATIVE (Negative); URINE CLARITY CLEAR; URINE COLOR YELLOW; URINE GLUCOSE-RANDOM* NEGATIVE (Negative); URINE KETONES NEGATIVE (Negative); URINE LEUKOCYTES-REFLEX NEGATIVE (Negative); URINE NITRITE-REFLEX NEGATIVE (Negative); URINE PROTEIN (DIPSTICK) NEGATIVE (Negative); URINE UROBILINOGEN 0.2 E.U./dl (0.2-1.0)
[2019-05-12] MEDS ORDERED: SYNTHROID25 MC1 PO (18:56)
[2019-05-12 19:07] VITALS: BP 105/61
--- NOTE | 2019-05-18 15:34 | EKG ---
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
== END 2019-05-12 19:05 | disposition home or self-care (01) ==
LOC: ER 16:56
PROVIDERS: Emergency Medicine; Nurse Practitioner
DX: R42 Dizziness and giddiness (principal); K21.9 Gastro-esophageal reflux disease without esophagitis; E03.9 Hypothyroidism, unspecified; Z88.2 Allergy status to sulfonamides; Z88.8 Allergy status to other drugs, medicaments and biological substances

== ENCOUNTER 2019-06-04 19:47 | Emergency (ER) | payer OTHER ==
[~2019-06-04] VITALS: Ht 182.9 cm; Wt 74.4 kg
[~2019-06-04 19:47] MED LIST changes: +PEPCID20 MG PO
[2019-06-04 20:08] LABS: ABSOLUTE NEUTROPHILS 2.4 thou/uL (1.4-8.2); BASOPHILS 0.8 % (0.0-2.0); EOSINOPHILS 0.7 % (0.0-3.0); HEMATOCRIT 48.9 % (42.0-52.0); HEMOGLOBIN 16.5 gm/dL (14.0-18.0); LYMPHOCYTES 40.3 % (24.0-44.0); MCH 32.9 pg (26.0-34.0); MCHC 33.7 g/dL (28.0-37.0); MCV 97.8 fL (80.0-100.0); MONOCYTES 6.5 % (1.0-8.0); PLATELET COUNT 194 thou/uL (150-400); POLYS 51.7 % (36.0-66.0); RDW 12.6 % (10.5-14.5); WBC 4.7 thou/uL (4.0-11.0)
[2019-06-04 20:12] LABS: CALCIUM 9.2 mg/dL (8.5-10.1); POTASSIUM 3.8 mmol/L (3.5-5.1)
[2019-06-04 20:19] LABS: ALBUMIN 4.1 g/dL (3.4-5.0); TOTAL BILIRUBIN 0.5 mg/dL (<0.1-1.0); TOTAL PROTEIN 7.1 g/dL (6.4-8.2)
[2019-06-04 20:41] LABS: URINE BILIRUBIN NEGATIVE (Negative); URINE BLOOD NEGATIVE (Negative); URINE CLARITY CLEAR; URINE COLOR YELLOW; URINE GLUCOSE-RANDOM* NEGATIVE (Negative); URINE KETONES NEGATIVE (Negative); URINE LEUKOCYTES-REFLEX NEGATIVE (Negative); URINE NITRITE-REFLEX NEGATIVE (Negative); URINE PROTEIN (DIPSTICK) NEGATIVE (Negative); URINE UROBILINOGEN 0.2 E.U./dl (0.2-1.0)
[2019-06-04] MEDS ORDERED: PRILOSEC OTC20 MG PO (21:00)
[2019-06-04 22:27] VITALS: BP 99/79
--- NOTE | 2019-06-05 08:25 | EKG ---
[facility] [place] [address] ELECTROCARDIOGRAM REPORT Name: PELON GRANT Room #: DEP [facility]#: [id number] Admission: 06/04/19 Attend Phys: Discharge: 06/04/19 Date of : [birth year] Report #: [id number] THIS REPORT FOR: cc: JOSE ALBERTO CAPONE - Family physician unknown Bulmaro Samuel MD [facility] ~ THIS REPORT FOR: //name// [facility] ED Test Date: 2019-06-04 Test Time: 21:39:29 Pat Name: PELON GRANT Department: Room: Gender: Wireless Engineer: : 1985 Requested By: Nelli Linares Order Number: [id number] MD: Bulmaro Samuel Measurements Intervals [place] Rate: 71 P: 70 [place]: 137 QRS: 24 QRSD: 103 T: 25 QT: 369 QTc: 401 Interpretive Statements Sinus rhythm RSR' in V1 or V2, right VCD Compared to ECG 05/12/2019 17:42:52 No significant change was found Electronically Signed On 06-05-2019 8:23:59 CDT by Bulmaro Samuel [email or web address] <ELECTRONICALLY SIGNED> By: Bulmaro Samuel MD, FACC 06/05/19 0823 38 Bulmaro Samuel MD, [facility] /EPI
== END 2019-06-04 22:39 | disposition home or self-care (01) ==
LOC: ER 19:47
PROVIDERS: Emergency Medicine; Nurse Practitioner Family
DX: R42 Dizziness and giddiness (principal); B34.9 Viral infection, unspecified; I10 Essential (primary) hypertension; K21.9 Gastro-esophageal reflux disease without esophagitis; E03.9 Hypothyroidism, unspecified; Z79.899 Other long term (current) drug therapy; Z88.2 Allergy status to sulfonamides; Z88.8 Allergy status to other drugs, medicaments and biological substances

== ENCOUNTER 2019-06-16 00:55 | Emergency (ER) | payer OTHER ==
[~2019-06-16] VITALS: Ht 182.9 cm; Wt 74.8 kg
[~2019-06-16 00:55] MED LIST changes: +PRILOSEC OTC20 MG PO
[2019-06-16] MEDS ORDERED: PROPRANOLOL 1010 M1 PO (01:07)
[2019-06-16] MEDS ORDERED: TYLENOL WITH CO1 TA1 PO (01:59)
[2019-06-16 02:09] VITALS: BP 103/60
== END 2019-06-16 02:10 | disposition home or self-care (01) ==
LOC: ER 00:55
DX: J02.9 Acute pharyngitis, unspecified (principal); I10 Essential (primary) hypertension; K21.9 Gastro-esophageal reflux disease without esophagitis; E03.9 Hypothyroidism, unspecified; Z98.890 Other specified postprocedural states; Z79.899 Other long term (current) drug therapy; Z88.2 Allergy status to sulfonamides; Z88.8 Allergy status to other drugs, medicaments and biological substances

== ENCOUNTER 2019-07-08 17:57 | Emergency (ER) | payer OTHER ==
[~2019-07-08] VITALS: Ht 182.9 cm; Wt 74.8 kg
[~2019-07-08 17:57] MED LIST changes: +PROPRANOLOL 1010 M1 PO; +TYLENOL WITH CO1 TA1 PO
[2019-07-08 18:24] LABS: ABSOLUTE NEUTROPHILS 1.4 thou/uL (1.4-8.2); BASOPHILS 0.9 % (0.0-2.0); EOSINOPHILS 1.7 % (0.0-3.0); HEMATOCRIT 46.2 % (42.0-52.0); HEMOGLOBIN 15.7 gm/dL (14.0-18.0); LYMPHOCYTES 54.1 % (24.0-44.0); MCH 33.1 pg (26.0-34.0); MCHC 34.1 g/dL (28.0-37.0); MCV 97.1 fL (80.0-100.0); MONOCYTES 6.1 % (1.0-8.0); PLATELET COUNT 213 thou/uL (150-400); POLYS 37.2 % (36.0-66.0); RBC 4.75 mil/uL (4.50-6.00); RDW 12.8 % (10.5-14.5); WBC 3.8 thou/uL (4.0-11.0)
[2019-07-08 18:31] LABS: ANION GAP 8 mmol/L (7-16); BUN 9 mg/dL (7-18); CALCIUM 8.7 mg/dL (8.5-10.1); CHLORIDE 103 mmol/L (98-107); CO2 29 mmol/L (21-32); CREATININE 1.1 mg/dL (0.7-1.3); GLUCOSE 84 mg/dL (74-106); POTASSIUM 4.1 mmol/L (3.5-5.1); SODIUM 140 mmol/L (136-145)
[2019-07-08 18:37] LABS: ALBUMIN 4.2 g/dL (3.4-5.0); LIPASE 104 U/L (73-393); SGOT 22 U/L (15-37); SGPT 26 U/L (30-65); TOTAL BILIRUBIN 0.6 mg/dL (<0.1-1.0); TOTAL PROTEIN 7.4 g/dL (6.4-8.2); TROPONIN-I <0.06 ng/mL (<0.06)
[2019-07-08 19:09] VITALS: BP 110/71
--- NOTE | 2019-07-09 07:57 | EKG ---
[facility] [place] [address] ELECTROCARDIOGRAM REPORT Name: PELON GRANT Room #: DEP [facility]#: [id number] Admission: 07/08/19 Attend Phys: Discharge: 07/08/19 Date of : [birth year] Report #: [id number] THIS REPORT FOR: cc: [facility] - Clinic physician unknown [facility] - Clinic physician unknown Bulmaro Samuel MD [facility] ~ THIS REPORT FOR: //name// [facility] ED Test Date: 2019-07-08 Test Time: 18:11:38 Pat Name: PELON GRANT Department: Room: Gender: M Herb Doctor: : 1985 Requested By: Rohan Alegria Order Number: [id number] MD: Bulmaro Samuel Measurements Intervals [place] Rate: 65 P: 66 [place]: 132 QRS: 32 QRSD: 106 T: 25 QT: 395 QTc: 411 Interpretive Statements Sinus rhythm Normal tracing Compared to ECG 06/04/2019 21:39:29 No significant changes Electronically Signed On 07-09-2019 7:56:06 CDT by Bulmaro Samuel [email or web address] <ELECTRONICALLY SIGNED> By: Bulmaro Samuel MD, [facility] 07/09/19 0756 D: [id number] 10 Bulmaro Samuel MD, FACC /EPI
== END 2019-07-08 19:09 | disposition home or self-care (01) ==
LOC: ER 17:57
PROVIDERS: Emergency Medicine
DX: R07.9 Chest pain, unspecified (principal); R06.02 Shortness of breath; R05 Cough; I10 Essential (primary) hypertension; K21.9 Gastro-esophageal reflux disease without esophagitis; E03.9 Hypothyroidism, unspecified; Z79.899 Other long term (current) drug therapy; Z88.2 Allergy status to sulfonamides; Z88.8 Allergy status to other drugs, medicaments and biological substances; Z88.1 Allergy status to other antibiotic agents

== ENCOUNTER 2020-04-23 12:12 | Emergency (ER) | payer OTHER ==
[~2020-04-23] VITALS: Ht 182.9 cm; Wt 77.1 kg
--- NOTE | 2020-04-23 12:42 | EKG ---
[address] [address] ELECTROCARDIOGRAM REPORT Name: PELON GRANT Room #: [facility]..#: [id number] Admission: Attend Phys: Discharge: Date of : [birth year] Report #: [id number] [facility] ED Test Date: 2020-04-23 Test Time: 12:20:31 Pat Name: PELON GRANT Department: Room: Gender: Market Development Director: JAYRO : 1985 Requested By: Roman Gomez Order Number: [id number] MD: Pedrito Sarmiento Measurements Intervals [place] Rate: 94 P: 73 [place]: 136 QRS: 33 QRSD: 97 T: 21 QT: 331 QTc: 414 Interpretive Statements Sinus rhythm Compared to ECG 07/08/2019 18:11:38 No significant changes Electronically Signed On 04-23-2020 12:42:49 SKEIN TIER by Pedrito Sarmiento [email or web address] <ELECTRONICALLY SIGNED> By: Pedrito Sarmiento MD, [facility] 04/23/20 1242 1220 1220 Pedrito Sarmiento MD, FACC /EPI
[2020-04-23 13:22] LABS: ABSOLUTE NEUTROPHILS 2.5 thou/uL (1.4-8.2); BASOPHILS 0.8 % (0.0-2.0); EOSINOPHILS 0.8 % (0.0-3.0); HEMATOCRIT 41.8 % (42.0-52.0); LYMPHOCYTES 33.6 % (24.0-44.0); MCH 32.2 pg (26.0-34.0); MCHC 33.6 g/dL (28.0-37.0); MCV 95.7 fL (80.0-100.0); MONOCYTES 7.9 % (1.0-8.0); PLATELET COUNT 209 thou/uL (150-400); POLYS 56.9 % (36.0-66.0); RBC 4.36 mil/uL (4.50-6.00); RDW 12.3 % (10.5-14.5); WBC 4.3 thou/uL (4.0-11.0)
[2020-04-23 13:32] LABS: ANION GAP 9 mmol/L (7-16); BUN 14 mg/dL (7-18); CALCIUM 8.8 mg/dL (8.5-10.1); CHLORIDE 103 mmol/L (98-107); CO2 28 mmol/L (21-32); CREATININE 1.1 mg/dL (0.7-1.3); GLUCOSE 110 mg/dL (74-106); POTASSIUM 3.8 mmol/L (3.5-5.1); SODIUM 140 mmol/L (136-145)
[2020-04-23 13:42] LABS: ALBUMIN 3.9 g/dL (3.4-5.0); SGOT 22 U/L (15-37); SGPT 27 U/L (16-63); TOTAL BILIRUBIN 0.6 mg/dL (0.2-1.0); TOTAL PROTEIN 6.6 g/dL (6.4-8.2); TROPONIN-I <0.06 ng/mL (<0.06)
[2020-04-23 14:44] VITALS: BP 113/70
== END 2020-04-23 14:54 | disposition home or self-care (01) ==
LOC: ER 12:12
PROVIDERS: Physician Assistant
DX: I49.8 Other specified cardiac arrhythmias (principal); R42 Dizziness and giddiness; I10 Essential (primary) hypertension; E03.9 Hypothyroidism, unspecified; K21.9 Gastro-esophageal reflux disease without esophagitis; Z79.899 Other long term (current) drug therapy; Z88.1 Allergy status to other antibiotic agents; Z88.2 Allergy status to sulfonamides; Z88.8 Allergy status to other drugs, medicaments and biological substances